=== PATIENT | female | born 1965 | race Caucasian/White ===

== ENCOUNTER 2017-01-11 04:10 | Emergency (ER) | payer OTHER ==
--- NOTE | 2017-01-11 04:27 | PDOC ---
History of Present Illness - General History Source: Patient Exam Limitations: No Limitations - History of Present Illness Initial Comments: 01/11/17 05:10 The patient is 51-year-old female, with a significant past medical history of hyperlipidemia, who presents to the ED with left sternal border pain that began this morning. Pt states that the pain woke her up out of her sleep. Pt does have anxiety but does not attribute her symptoms to her anxiety. On exam, patient does not feel the sensation she was having prior to her presentation. Pt reports having nausea. The patient denies any fever, chills, vomiting, diarrhea, or shortness of breath. <Eri Montalvo - Last Filed: 01/11/17 05:13> - General History Source: Patient <Marcus Sauceda - Last Filed: 01/11/17 06:08> - General Stated Complaint: CHEST PAIN, NAUSEA Time Seen by Provider: 01/11/17 04:21 Past History <Eri Montalvo - Last Filed: 01/11/17 05:13> - Past Medical History Hypercholesterolemia: Yes Psychiatric Problems: Yes (anxiety) Suicide Attempt (Hx): No - Immunization History Td Vaccination: No Immunization Up to Date: No - Psycho/Social/Smoking Cessation Hx Anxiety: Yes Suicidal Ideation: No Smoking Status: Yes Smoking History: Current every day smoker Years of Tobacco Use: 30 Have you smoked in the past 12 months: Yes Number of Cigarettes Smoked Daily: 10 'Breaking Loose' booklet given: 07/31/13 Hx Alcohol Use: Yes (SOCIAL) Drug/Substance Use Hx: Yes (Alcohol) Substance Use Type: Alcohol Hx Substance Use Treatment: No <Marcus Sauceda - Last Filed: 01/11/17 06:08> - Past Medical History Allergies/Adverse Reactions: Allergies Allergy/AdvReac Type Severity Reaction Status Date / Time No Known Allergies Allergy Verified 01/11/17 04:42 Home Medications: Ambulatory Orders Alprazolam [Xanax] 1 mg PO TID 07/31/13 BUPROPion HCL "SR" [Wellbutrin Sr -] 150 mg PO DAILY 07/31/13 Omeprazole Magnesium [Prilosec (OTC)] 20 mg PO DAILY 07/31/13 Simvastatin [Zocor -] 40 mg PO HS 07/31/13 Metoprolol Succinate [Toprol Xl -] 25 mg PO DAILY 01/11/17 Review of Systems - Review of Systems Able to Perform ROS?: Yes Comments:: 01/11/17 05:11 CONSTITUTIONAL: Absent: fever, chills, diaphoresis, generalized weakness, malaise, loss of appetite HEENT: Absent: rhinorrhea, nasal congestion, throat pain, throat swelling, difficulty swallowing, mouth swelling, ear pain, eye pain, visual Changes CARDIOVASCULAR: Present chest pain Absent: syncope, palpitations, irregular heart rate, lightheadedness, peripheral edema RESPIRATORY: Absent: cough, shortness of breath, dyspnea with exertion, orthopnea, wheezing, stridor, hemoptysis GASTROINTESTINAL: Present: nausea Absent: abdominal pain, abdominal distension, vomiting, diarrhea, constipation , melena, hematochezia GENITOURINARY: Absent: dysuria, frequency, urgency, hesitancy, hematuria, flank pain, genital pain MUSCULOSKELETAL: Absent: myalgia, arthralgia, joint swelling SKIN: Absent: rash, itching, pallor HEMATOLOGIC/IMMUNOLOGIC: Absent: easy bleeding, easy bruising, lymphadenopathy, frequent infections ENDOCRINE: Absent: unexplained weight gain, unexplained weight loss, heat intolerance, cold intolerance NEUROLOGIC: Absent: headache, focal weakness or paresthesias, dizziness, unsteady gait, seizure, mental status changes, bladder or bowel incontinence PSYCHIATRIC: Absent: anxiety, depression, suicidal or homicidal ideation, hallucinations. <Eri Montalvo - Last Filed: 01/11/17 05:13> *Physical Exam - Vital Signs Last Vital Signs Temp Pulse Resp BP Pulse Ox 98.0 F 81 19 134/93 99 01/11/17 04:42 01/11/17 04:42 01/11/17 04:42 01/11/17 04:42 01/11/17 04:42 - Physical Exam Comments: 01/11/17 05:12 GENERAL: Well developed, well nourished. Awake and alert. No acute distress. HEENT: Normocephalic, atraumatic. PERRLA, EOMI. No conjunctival pallor. Sclera are non- icteric. Moist mucous membranes. Oropharynx is clear. NECK: Supple. Full ROM. No JVD. Carotid pulses 2+ and symmetric, without bruits. No thyromegaly. No lymphadenopathy. CARDIOVASCULAR: Regular rate and rhythm. No murmurs, rubs, or gallops. Distal pulses are 2+ and symmetric. PULMONARY: No evidence of respiratory distress. Lungs clear to auscultation bilaterally. No wheezing, rales or rhonchi. ABDOMINAL: Soft. Non-tender. Non-distended. No rebound or guarding. No organomegaly. Normoactive bowel sounds. MUSCULOSKELETAL Normal range of motion at all joints. No bony deformities or tenderness. No CVA tenderness. EXTREMITIES: No cyanosis. No clubbing. No edema. No calf tenderness. SKIN: Warm and dry. Normal capillary refill. No rashes. No jaundice. NEUROLOGICAL: Alert, awake, appropriate. PSYCHIATRIC: Cooperative. Good eye contact. Appropriate mood and affect. <Eri Montalvo - Last Filed: 01/11/17 05:13> ED Treatment Course - LABORATORY CBC & Chemistry Diagram: 01/11/17 05:00 01/11/17 05:00 <Eri Montalvo - Last Filed: 01/11/17 05:13> - LABORATORY CBC & Chemistry Diagram: 01/11/17 05:00 01/11/17 05:00 <Marcus Sauceda - Last Filed: 01/11/17 06:08> *DC/Admit/Observation/Transfer - Attestations Scribe Attestion: 01/11/17 05:13 Documentation prepared by Eri Montalvo, acting as certified medical assistant for Marcus Sauceda MD. <Eri Montalvo - Last Filed: 01/11/17 05:13> - Discharge Dispostion Admit: No <Marcus Sauceda - Last Filed: 01/11/17 06:08> Diagnosis at time of Disposition: Chest pain Qualifiers: Chest pain type: unspecified Qualified Code(s): R07.9 - Chest pain, unspecified - Discharge Dispostion Disposition: HOME Condition at time of disposition: Stable - Referrals Referrals: Ryan Poon MD [Staff Physician] - David Harp MD [Staff Physician] - - Patient Instructions Printed Discharge Instructions: DI for Chest Pain Additional Instructions: Please follow up with the referrals given to you if pain returns.
[2017-01-11 04:45] VITALS: BP 134/93; PULSE 81; TEMP 98; BMI 22.6
[2017-01-11 05:13] LABS: BASOPHIL 0.6 % (0-2.0); EOSINOPHIL 2.4 % (0-4.5); MCH 31.5 pg (25.7-33.7); MCHC 33.9 g/dl (32.0-36.0); MEAN PLT VOLUME 7.8 fl (7.5-11.1); NEUTROPHILS 68.6 % (42.8-82.8); PLATELET COUNT 246 K/MM3 (134-434); WHITE BLOOD COUNT 7.5 K/mm3 (4.0-10.0)
[2017-01-11 05:41] LABS: ALBUMIN 4.2 g/dl (3.4-5.0); ANION GAP 7 (8-16); BILIRUBIN,TOTAL 0.3 mg/dL (0.2-1.0); CALCIUM 9.3 mg/dL (8.5-10.1); CO2 28 mmol/L (21-32); CREATININE 0.6 mg/dL (0.55-1.02); GLUCOSE,RANDOM 90 mg/dL (74-106); SGOT/AST 33 U/L (15-37); SGPT/ALT 57 U/L (12-78); TOT PROT 7.5 g/dl (6.4-8.2)
[2017-01-11 05:43] LABS: ALK PHOS 126 U/L (45-117); TROPONIN I < 0.02 ng/ml (0.00-0.05)
--- NOTE | 2017-01-11 09:12 | EKG ---
Test Reason : Blood Pressure : / mmHG Vent. Rate : 076 BPM Atrial Rate : 076 BPM P-R Int : 160 ms QRS Dur : 090 ms QT Int : 386 ms P-R-T Axes : 067 056 048 degrees QTc Int : 434 ms NORMAL SINUS RHYTHM NORMAL ECG WHEN COMPARED WITH ECG OF 19-DEC-2013 18:02, NO SIGNIFICANT CHANGE WAS FOUND Confirmed by MASOOD RIVERA MD ([id number]) on 01/11/2017 9:12:16 AM Referred By: Confirmed By:MASOOD RIVERA MD
== END 2017-01-11 06:17 | disposition home or self-care (01) ==
LOC: JER 04:10
DX: F41.9 Anxiety disorder, unspecified (principal); E78.00 Pure hypercholesterolemia, unspecified
CPT/HCPCS: 36415; 80053; 82550; 84484; 84703; 85025; 93005; 93010; 99284-25

== ENCOUNTER 2019-06-26 10:48 | Emergency (ER) | payer OTHER ==
[2019-06-26 10:59] VITALS: BMI 22.2
--- NOTE | 2019-06-26 11:53 | PDOC ---
History of Present Illness - General Chief Complaint: Pain Stated Complaint: CHEST PAIN Time Seen by Provider: 06/26/19 11:38 - History of Present Illness Initial Comments: 06/26/19 11:47 CHIEF COMPLAINT: chest pain HISTORY OF PRESENT ILLNESS: 53 yo F with hx of HTN, HLD, TIA, alcohol dependence , and depression presents to ED with chest pain x 6 days. Patient describes the pain as an intermittent "pinching" pain that resolves when she "holds her L breast." Pain is sporadic including when lying down to watch tv, standing, or eating. Patient denies any shortness of breath, headache, neck pain, swelling to extremities, or dizziness. Denies recent travel/surgery, denies use of hormones. Patient is postmenopausal. No recent travel or sick contacts. PAST MEDICAL HISTORY: HTN, HLD FAMILY HISTORY: Brother - [place] in 50s, Father - "something with the aorta" SOCIAL HISTORY: "decades" of smoking. Denies alcohol, illicit drug use. SURGICAL HISTORY: breast implants ALLERGIES: No known drug allergies REVIEW OF SYSTEMS General/Constitutional: Denies fever or chills. Denies weakness, weight change. HEENT: Denies change in vision. Denies ear pain or discharge. Denies sore throat. Cardiovascular: Chest pain x 6 days. Respiratory: Denies cough, wheezing, or hemoptysis. Gastrointestinal: Denies nausea, vomiting, diarrhea or constipation. Denies rectal bleeding. Genitourinary: Denies dysuria, frequency, or change in urination. Musculoskeletal: Denies joint or muscle swelling or pain. Denies neck or back pain. Skin and breasts: Denies rash or easy bruising. Neurologic: Denies headache, vertigo, loss of consciousness, or loss of sensation. Psychiatric: Denies depression or anxiety. PHYSICAL EXAM General Appearance: Well-appearing, appropriately dressed. No apparent distress. HEENT: EOMI, PERRLA, normal ENT inspection, normal voice, TMs normal, pharynx normal. No conjunctival pallor. No photophobia, scleral icterus. Neck: Supple. Trachea midline. No tenderness, rigidity, carotid bruit, stridor , lymphadenopathy, or thyromegaly. Respiratory/Chest: Lungs CTAB. No shortness of breath, chest tenderness, respiratory distress, accessory muscle use. No crackles, rales, rhonchi, stridor , wheezing, dullness Cardiovascular: RRR. S1, S2. No JVD, murmur, bradycardia, tachycardia. Vascular Pulses: Dorsalis-Pedis (R): 2+, Dorsalis-Pedis (L): 2+ Gastrointestinal/Abdominal: Normal bowel sounds. Abdomen soft, non-distended. No tenderness or rebound tenderness. No organomegaly, pulsatile mass, guarding , hernia, hepatomegaly, splenomegaly. Lymphatic: No adenopathy, tenderness. Musculoskeletal/Extremities: Normal inspection. FROM of all extremities, normal capillary refill. Pelvis Stable. No CVA tenderness. No tenderness to extremities, pedal edema, swelling, erythema or deformity. Integumentary: Appropriate color, dry, warm. No cyanosis, erythema, jaundice or rash Neurologic: winder tender II-XII intact. Fully oriented, alert. Appropriate mood/affect. Motor strength 5/5. No appreciable EOM palsy, facial droop or sensory deficit. 06/26/19 11:56 06/26/19 11:57 Past History - Past Medical History Allergies/Adverse Reactions: Allergies Allergy/AdvReac Type Severity Reaction Status Date / Time No Known Allergies Allergy Verified 06/26/19 10:54 Home Medications: Ambulatory Orders Alprazolam [Xanax] 1 mg PO TID 07/31/13 BUPROPion HCL "SR" [Wellbutrin Sr -] 150 mg PO DAILY 07/31/13 Omeprazole Magnesium [Prilosec (OTC)] 20 mg PO DAILY 07/31/13 Simvastatin [Zocor -] 40 mg PO HS 07/31/13 Metoprolol Succinate [Toprol Xl -] 25 mg PO DAILY 01/11/17 Amlodipine Besylate [Norvasc -] 5 mg PO DAILY 06/26/19 Diclofenac Sodium [Voltaren] 100 gm TP TID #1 tube 06/26/19 COPD: No HTN: Yes Hypercholesterolemia: Yes Psychiatric Problems: Yes (anxiety) - Immunization History Td Vaccination: No Immunization Up to Date: No - Psycho Social/Smoking Cessation Hx Smoking Status: Yes Smoking History: Current every day smoker Years of Tobacco Use: 30 Have you smoked in the past 12 months: Yes Number of Cigarettes Smoked Daily: 10 Information on smoking cessation initiated: Yes 'Breaking Loose' booklet given: 07/31/13 Hx Alcohol Use: Yes (SOCIAL) Drug/Substance Use Hx: Yes (Alcohol) Substance Use Type: Alcohol Hx Substance Use Treatment: No *Physical Exam - Vital Signs Last Vital Signs Temp Pulse Resp BP Pulse Ox 98.3 F 78 20 135/72 100 06/26/19 13:09 06/26/19 13:09 06/26/19 13:09 06/26/19 13:09 06/26/19 13:09 ED Treatment Course - LABORATORY CBC & Chemistry Diagram: 06/26/19 12:00 06/26/19 12:00 - ADDITIONAL ORDERS Additional order review: Laboratory Results 06/26/19 06/26/19 12:00 12:00 Sodium 136 Potassium 4.2 Chloride 104 Carbon Dioxide 28 Anion Gap 4 L BUN 9.4 Creatinine 0.7 Est GFR (CKD-EPI)AfAm 115.45 Est GFR (CKD-EPI)NonAf 99.62 Random Glucose 94 Calcium 9.9 Total Bilirubin 0.3 AST 18 ALT 26 Alkaline Phosphatase 110 Creatine Kinase 57 Troponin I < 0.02 Total Protein 7.3 Albumin 4.3 06/26/19 12:00 RBC 4.16 MCV 92.1 MCHC 34.1 RDW 12.4 MPV 8.4 Neutrophils % 64.1 Lymphocytes % 25.5 D Monocytes % 7.2 Eosinophils % 2.4 Basophils % 0.8 - RADIOLOGY Radiology Studies Ordered: Category Date Time Status CHEST PA & LAT [RAD] Stat Radiology 06/26/19 11:43 Completed - Medications Given in the ED: ED Medications Discontinued Medications Generic Name Dose Route Start Last Admin Trade Name Freq PRN Reason Stop Dose Admin Famotidine/Sodium Chloride 20 mg in 50 mls @ 100 mls/hr 06/26/19 12:41 13:18 Pepcid 20 Mg Premixed Ivpb - IVPB 06/26/19 13:10 100 mls/hr ONCE ONE Administration Medical Decision Making - Medical Decision Making 06/26/19 11:53 53 yo F with hx of HTN and HLD presents to ED with intermittent "pinching" chest pain x 6 days. -ekg -labs -cxr 06/26/19 15:52 EKG- NSR. Chest XR negative. labs unremarkable. Likely chest wall pain secondary to irritation from breast implant as patient states the pain is "right where my implant starts." Patient had normal breast US this year, Bi-RADS 1. -Voltaren gel. F/u with PCP. Advised patient to take medication as prescribed and follow up with PCP within the next week. Advised patient of signs and symptoms for return to ED. Patient verbalized understanding and agrees to plan. Discharge - Discharge Information Problems reviewed: Yes Clinical Impression/Diagnosis: Chest wall pain Condition: Stable Disposition: HOME - Admission No - Additional Discharge Information Prescriptions: Diclofenac Sodium [Voltaren] 100 gm TP TID #1 tube - Follow up/Referral Referrals: Evelyne Sheets MD [Primary Care Provider] - - Patient Discharge Instructions Patient Printed Discharge Instructions: DI for Costochondritis Additional Instructions: Please use medications as prescribed. Follow-up with your primary care doctor and casing puller within the next week for continued evaluation and monitoring of your symptoms. If you develop any worsening chest pain, shortness of breath , swelling in your extremities, or any new or worsening symptoms, please return to the ER. - Post Discharge Activity
[2019-06-26 12:18] LABS: BASO % 0.8 % (0-2.0); EOS % 2.4 % (0-4.5); HEMATOCRIT 38.2 % (32.4-45.2); LYMPH % 25.5 % (8-40); MCH 31.4 pg (25.7-33.7); MCHC 34.1 g/dl (32.0-36.0); MEAN CELL VOLUME 92.1 fl (80-96); MEAN PLT VOLUME 8.4 fl (7.5-11.1); MONO % 7.2 % (3.8-10.2); NEUT % 64.1 % (42.8-82.8); PLATELET COUNT 290 K/MM3 (134-434); RBC 4.16 M/mm3 (3.60-5.2); RDW 12.4 % (11.6-15.6); WHITE BLOOD COUNT 5.7 K/mm3 (4.0-10.0)
[2019-06-26 12:35] LABS: ALBUMIN 4.3 g/dl (3.4-5.0); BILIRUBIN,TOTAL 0.3 mg/dL (0.2-1); BLOOD UREA NITROGEN 9.4 mg/dL (7-18); CALCIUM 9.9 mg/dL (8.5-10.1); CREATININE 0.7 mg/dL (0.55-1.3); POTASSIUM 4.2 mmol/L (3.5-5.1); TOT PROT 7.3 g/dl (6.4-8.2)
[2019-06-26] MEDS ORDERED: FAMOTIDINE 20 MG/50 ML IVPB 20 MG/50 ML MG IVPB ONE ×2 (12:41→13:11)
[2019-06-26 13:10] VITALS: BP 135/72; PULSE 78; TEMP 98.3
--- NOTE | 2019-06-26 13:40 | EKG ---
Test Reason : Blood Pressure : / mmHG Vent. Rate : 074 BPM Atrial Rate : 074 BPM P-R Int : 168 ms QRS Dur : 086 ms QT Int : 380 ms P-R-T Axes : 080 066 051 degrees QTc Int : 421 ms NORMAL SINUS RHYTHM NORMAL ECG WHEN COMPARED WITH ECG OF 11-JAN-2017 04:19, NONSPECIFIC T WAVE ABNORMALITY NOW EVIDENT IN ANTERIOR LEADS Confirmed by MASOOD RIVERA MD ([id number]) on 06/26/2019 1:40:18 PM Referred By: Confirmed By:MASOOD RIVERA MD
== END 2019-06-26 13:19 | disposition home or self-care (01) ==
LOC: JER 10:48
PROC: 3E033GC Introduction of Other Therapeutic Substance into Peripheral Vein, Percutaneous Approach (ICD-10-PCS; principal; 2019-06-26)
DX: R07.89 Other chest pain (principal); I10 Essential (primary) hypertension; E78.5 Hyperlipidemia, unspecified; F41.9 Anxiety disorder, unspecified; F17.210 Nicotine dependence, cigarettes, uncomplicated
CPT/HCPCS: 36415; 71046-TC-FY; 80053; 82550; 84484; 85025; 93005; 93010; 96365; 99283-25

== ENCOUNTER 2020-01-14 10:37 | Emergency (ER) | payer OTHER ==
[2020-01-14 10:43] VITALS: BMI 17.4
--- NOTE | 2020-01-14 11:36 | PDOC ---
History of Present Illness - General Chief Complaint: Weakness Stated Complaint: SOB Time Seen by Provider: 01/14/20 11:35 - History of Present Illness Initial Comments: Pt is a 54yo F with a PMH HTN, HLD, anxiety who presents with tingling in hands and feet. Pt states that symptoms began 4 days ago. Paresthesias are intermitten t, no notable trigger, no relieving/exacerbating factors, non radiating. Also reports tightness in L arm and back. Reports dizziness and increased thirst. Endorses 40lb unintentional weight loss over past 6 months. Denies f/c, weakness, n/v, visual changes, chest pain, syncope, SOB, headache, hot/cold intolerance. PCP: Sudeep PMH: see HPI PSHx: breast implant removal Meds: Metoprolol, Norvasc, Zocor, Wellbutrin, Xanax All: seasonal allergies Past History - Medical History Allergies/Adverse Reactions: Allergies Allergy/AdvReac Type Severity Reaction Status Date / Time No Known Allergies Allergy Verified 01/14/20 10:42 Home Medications: Ambulatory Orders Alprazolam [Xanax] 1 mg PO TID 07/31/13 BUPROPion HCL "SR" [Wellbutrin Sr -] 150 mg PO DAILY 07/31/13 Omeprazole Magnesium [Prilosec (OTC)] 20 mg PO DAILY 07/31/13 Simvastatin [Zocor -] 40 mg PO HS 07/31/13 Metoprolol Succinate [Toprol Xl -] 25 mg PO DAILY 01/11/17 Amlodipine Besylate [Norvasc -] 5 mg PO DAILY 06/26/19 COPD: No HTN: Yes Hypercholesterolemia: Yes Psychiatric Problems: Yes (anxiety) - Immunization History Td Vaccination: No Immunization Up to Date: No - Psycho-Social/Smoking History Smoking Status: Yes Smoking History: Current every day smoker Years of Tobacco Use: 30 Have you smoked in the past 12 months: Yes Number of Cigarettes Smoked Daily: 10 Information on smoking cessation initiated: Yes 'Breaking Loose' booklet given: 07/31/13 - Substance Abuse Hx (Audit-C & DAST Scrn) How often the patient has a drink containing alcohol: Never Score: In Men: 4 or > Positive; In Women: 3 or > Positive: 0 Screen Result (Pos requires Nsg. Audit-10AR): Negative In the last yr the pt used illegal drug/Rx for NonMed reason: No Score: Yes response is considered Positive: 0 Screen Result (Positive result requires Nsg. DAST-10): Negative Review of Systems - Review of Systems Able to Perform ROS?: Yes Comments:: CONSTITUTIONAL:denies fever, chills, diaphoresis, generalized weakness HEENT:denies visual Changes CARDIOVASCULAR:reports lightheadedness (chronic), denies chest pain, syncope, palpitations RESPIRATORY:denies cough, shortness of breath, wheezing GASTROINTESTINAL: denies abdominal pain, nausea, vomiting, diarrhea, constipation, melena, hematochezia GENITOURINARY:denies dysuria, frequency, urgency, hesitancy, hematuria, flank pain, genital pain ENDOCRINE: reports unexplained weight loss; denies heat intolerance, cold intolerance NEUROLOGIC:reports paresthesias in b/l hands and feet; denies headache, loss of consciousness, unsteady gait SKIN:denies rash, itching, pallor PSYCHIATRIC:reports anxiety *Physical Exam - Vital Signs Last Vital Signs Temp Pulse Resp BP Pulse Ox 98.1 F 67 17 140/87 99 01/14/20 10:38 01/14/20 10:38 01/14/20 10:38 01/14/20 10:38 01/14/20 10:38 - Physical Exam General: awake, alert, in no acute distress Head: normocephalic, atraumatic Eyes: PERRL, EOMI, anicteric sclera, conjunctiva clear ENT: hearing grossly normal, oropharynx clear without exudates. Moist mucous membranes Lung: equal breath sounds b/l, CTA b/l, no crackles, wheezes; no distress, speaks full sentences Heart: RRR, normal S1, S2, no murmurs, rubs, gallops Abdomen: soft, non tender, normoactive bowel sounds, no guarding, rebound, masses Extremities: normal ROM, no edema, no erythema or tenderness, DP/PT pulses 2+ and symmetric, no clubbing, cyanosis Neuro: CN2-12 grossly intact, moves all extremities, normal speech, normal gait, sensation intact Skin: warm, dry, no rashes or lesions noted ED Treatment Course - LABORATORY CBC & Chemistry Diagram: 01/14/20 12:50 01/14/20 12:50 Medical Decision Making - Medical Decision Making Ms. Larson is a 54yo F with PMH HTN, HLD, anxiety who presents with b/l paresthesias. Vital Signs Period Temp Pulse Resp BP Sys/Holloway Pulse Ox Last 24 Hr 98.1 F 67 17 140/87 99 DDx including but not limited to: hypocalcemia, hyperthyroidism, ACS Plan: labs, ekg, CXR Laboratory Tests 01/14/20 01/14/20 12:50 12:50 WBC 5.6 RBC 3.91 Hgb 12.1 Hct 36.1 MCV 92.3 MCH 30.9 MCHC 33.5 RDW 13.7 D Plt Count 289 MPV 7.8 Absolute Neuts (auto) 3.2 Neutrophils % 55.9 Lymphocytes % 33.4 D Monocytes % 7.3 Eosinophils % 2.3 Basophils % 1.1 Nucleated RBC % 0 Sodium 137 Potassium 4.4 Chloride 103 Carbon Dioxide 30 Anion Gap 4 L BUN 6.0 L Creatinine 0.6 Est GFR (CKD-EPI)AfAm 120.61 Est GFR (CKD-EPI)NonAf 104.06 Random Glucose 85 Calcium 9.5 Magnesium 2.2 Total Bilirubin 0.5 AST 14 L ALT 21 Alkaline Phosphatase 80 Creatine Kinase 64 Troponin I < 0.02 Total Protein 7.2 Albumin 4.4 TSH 0.68 01/14/20 14:05 CBC no anemia, no leukocytosis CMP electrolytes WNL TSH WNL, normal troponin EKG: HR, normal sinus rhythm, intervals WNL, no ST changes CXR: no acute chest pathology Patient well appearing and asymptomatic entirety of ED stay. Patient stable for discharge. Informed of all lab and imaging results. Given follow up instructions and strict return precautions. Patient expressed understanding and agree to plan Disposition Discharge to home 01/14/20 14:57 Discharge - Discharge Information Problems reviewed: Yes Clinical Impression/Diagnosis: Paresthesia Condition: Stable Disposition: HOME - Follow up/Referral Referrals: Evelyne Sheets MD [Primary Care Provider] - - Patient Discharge Instructions Patient Printed Discharge Instructions: DI for Numbness/tingling Additional Instructions: You came into the ER tingling in your extremities. In the ED, you were evaluated with physical exam, labs, ekg, and chest xray. You did not have any electrolyte abnormalities, no anemia, no infection. Your EKG was normal. Your chest xray was normal. There does not appear to be an acute need for immediate hospitalization You were advised to follow up with your primary care doctor at your scheduled appointment. Please let Dr. Sheets know about your recent unintentional weight loss. Come back to the ER immediately with any new or worsening concerns. Thank you for coming to the [facility] ER. We hope you feel better soon! - Post Discharge Activity
[2020-01-14 13:19] LABS: BASO % 1.1 % (0-2.0); EOS % 2.3 % (0-4.5); HEMATOCRIT 36.1 % (32.4-45.2); HEMOGLOBIN 12.1 GM/dL (10.7-15.3); LYMPH % 33.4 % (8-40); MCH 30.9 pg (25.7-33.7); MCHC 33.5 g/dl (32.0-36.0); MEAN CELL VOLUME 92.3 fl (80-96); MEAN PLT VOLUME 7.8 fl (7.5-11.1); MONO % 7.3 % (3.8-10.2); NEUT % 55.9 % (42.8-82.8); PLATELET COUNT 289 K/MM3 (134-434); RBC 3.91 M/mm3 (3.60-5.2); RDW 13.7 % (11.6-15.6); WHITE BLOOD COUNT 5.6 K/mm3 (4.0-10.0)
[2020-01-14 13:51] LABS: ALBUMIN 4.4 g/dl (3.4-5.0); ALK PHOS 80 U/L (45-117); ANION GAP 4 MMOL/L (8-16); BILIRUBIN,TOTAL 0.5 mg/dL (0.2-1); CALCIUM 9.5 mg/dL (8.5-10.1); CHLORIDE 103 mmol/L (98-107); CO2 30 mmol/L (21-32); CREATININE 0.6 mg/dL (0.55-1.3); GLUCOSE,RANDOM 85 mg/dL (74-106); MAGNESIUM 2.2 mg/dL (1.8-2.4); POTASSIUM 4.4 mmol/L (3.5-5.1); SGOT/AST 14 U/L (15-37); SGPT/ALT 21 U/L (13-61); SODIUM 137 mmol/L (136-145); TOT PROT 7.2 g/dl (6.4-8.2)
--- NOTE | 2020-01-14 14:56 | EKG ---
Test Reason : Blood Pressure : / mmHG Vent. Rate : 066 BPM Atrial Rate : 066 BPM P-R Int : 170 ms QRS Dur : 080 ms QT Int : 424 ms P-R-T Axes : 073 063 045 degrees QTc Int : 444 ms NORMAL SINUS RHYTHM NORMAL ECG WHEN COMPARED WITH ECG OF 26-JUN-2019 10:52, NO SIGNIFICANT CHANGE WAS FOUND Confirmed by GERMAN ROCK MD ([id number]) on 01/14/2020 2:56:21 PM Referred By: Confirmed By:GERMAN ROCK MD
--- NOTE | 2020-01-14 15:10 | PDOC ---
Documentation entered by Divya Herrera SCRIBE, acting as scribe for Marlee Chase MD. Marlee Chase MD: This documentation has been prepared by the Sharon rivas Brenda, SCRIBE, under my direction and personally reviewed by me in its entirety. I confirm that the documentation accurately reflects all work, treatment, procedures, and medical decision making performed by me. Attending Attestation - Resident Resident Name: LukeAnuradha - ED Attending Attestation I have performed the following: I have examined & evaluated the patient, The case was reviewed & discussed with the resident, I agree w/resident's findings & plan, Exceptions are as noted - HPI HPI: 01/14/20 13:26 The patient is a 54 year old female with a significant PMH of HTN, HLD and anxiety who presents to the emergency department for evaluation of intermittent hand and feet tingling for 4 days ago. She notes that the tingling has no notable trigger and no alleviated or exacerbating factors and is non-radiating. She also notes a 40lb weight loss in the past 6 months that was unintentional. The patient denies chest pain, shortness of breath, headache and dizziness. Denies fever, chills, nausea, vomiting, diarrhea and constipation. Denies dysuria, frequency, urgency and hematuria. Allergies: NKA Past surgical history: Breintact thrill. ast implant removal Social history: No reported hx of tobacco use, alcohol use or illicit drug use. PCP: Kam Nunez - Physicial Exam PE: 01/14/20 13:26 GENERAL: Awake, alert, and fully oriented, in no acute distress NECK: Normal ROM, supple, no lymphadenopathy, JVD, or masses LUNGS: Breath sounds equal, clear to auscultation bilaterally. No wheezes, and no crackles HEART: Regular rate and rhythm, normal S1 and S2, no murmurs, rubs or gallops ABDOMEN: Soft, nontender, normoactive bowel sounds. No guarding, no rebound. No masses EXTREMITIES: Normal range of motion, no edema. No clubbing or cyanosis. No cords, erythema, or tenderness NEUROLOGICAL: Cranial nerves II through XII grossly intact. Normal speech, normal gait SKIN: Warm, Dry, normal turgor, no rashes or lesions noted. - Medical Decision Making 01/14/20 15:02 Pt presents to the ED complaining of diffuse tingling sensation in bilateral legs and arms. Neurologically intact. Lab checked to rule out electrolyte disturbance and are negative. Will likely discharge home if labs are normal. Discharge - Discharge Information Problems reviewed: Yes Clinical Impression/Diagnosis: Paresthesia Condition: Stable Disposition: HOME - Follow up/Referral Referrals: Evelyne Sheets MD [Primary Care Provider] - - Patient Discharge Instructions Patient Printed Discharge Instructions: DI for Numbness/tingling Additional Instructions: You came into the ER tingling in your extremities. In the ED, you were evaluated with physical exam, labs, ekg, and chest xray. You did not have any electrolyte abnormalities, no anemia, no infection. Your EKG was normal. Your chest xray was normal. There does not appear to be an acute need for immediate hospitalization You were advised to follow up with your primary care doctor at your scheduled appointment. Please let Dr. Sheets know about your recent unintentional weight loss. Come back to the ER immediately with any new or worsening concerns. Thank you for coming to the [facility] ER. We hope you feel better soon! - Post Discharge Activity
[2020-01-14 15:22] VITALS: BP 120/77; PULSE 72; TEMP 98.5
== END 2020-01-14 15:23 | disposition home or self-care (01) ==
LOC: JER 10:37
DX: R20.2 Paresthesia of skin (principal)
CPT/HCPCS: 36415; 71046-TC-FY; 80053; 82550; 83735; 84443; 84484; 85025; 93005; 93010; 99285-25

== ENCOUNTER 2022-01-15 12:15 | Emergency (ER) | payer OTHER ==
[2022-01-15 12:34] VITALS: BP 123/86; PULSE 81; TEMP 98.5; BMI 21.7
[2022-01-15] MEDS ORDERED: KETOROLAC TROMETHAMINE 30 MG/1 ML VIAL IM ONE (13:27)
[2022-01-15] MEDS ORDERED: KETOROLAC TROMETHAMINE 30 MG/1 ML VIAL ONE (13:28)
== END 2022-01-15 13:58 | disposition home or self-care (01) ==
LOC: JER 12:15 → JERFT 12:15
PROC: 3E0233Z Introduction of Anti-inflammatory into Muscle, Percutaneous Approach (ICD-10-PCS; principal; 2022-01-15)
DX: M54.50 Low back pain, unspecified (principal)
CPT/HCPCS: 99284-25